=== PATIENT | male | born 1985 | race Hispanic/Latino ===

== ENCOUNTER 2017-11-08 16:07 | Outpatient (CLI) | payer BC | END 2017-11-08 16:08 | disposition home or self-care (01) | LOC: BICULT 16:07 | PROVIDERS: ATTEND Family Medicine | DX: N50.89 Other specified disorders of the male genital organs (principal); N43.3 Hydrocele, unspecified | CPT/HCPCS: 76870; 93976 ==

== ENCOUNTER 2018-01-02 17:11 | Outpatient (CLI) | payer BC ==
[2018-01-04 13:32] LABS: Hemoglobin 16.1 g/dL (14.0-18.0); Mean Corpuscular HGB CONC 33.7 g/dL (32.0-36.0); Mean Corpuscular Hemoglobin 31.9 pg (27.0-31.0); Mean Corpuscular Volume 94.7 fl (80.0-94.0); Mean Platelet Volume 7.7 fL (7.4-10.4); Platelet Count 247 thou/uL (130-400); RBC Distribution Width 11.5 % (11.5-14.5); Red Blood Cell (RBC) Count 5.04 mill/uL (4.70-6.10)
[2018-01-04 13:39] LABS: Anion Gap 12 mmol/L (10-20); BUN (Urea Nitrogen) 12 mg/dL (8.9-20.6); Calc. Creatinine Clearance 0 mL/min (70-130); Calcium 9.8 mg/dL (7.8-10.44); Carbon Dioxide 29 mmol/L (22-29); Chloride 101 mmol/L (98-107); Estimated GFR-MDRD 58; Glucose 92 mg/dL (70-105); Potassium 4.4 mmol/L (3.5-5.1); Sodium 138 mmol/L (136-145)
== END 2018-01-02 17:12 | disposition home or self-care (01) ==
LOC: LABBT 17:11
PROVIDERS: ATTEND Urology
DX: Z01.812 Encounter for preprocedural laboratory examination (principal); N43.3 Hydrocele, unspecified
CPT/HCPCS: 80048; 85027

== ENCOUNTER 2018-01-08 12:02 | Day surgery (SDC) | payer BC ==
[2018-01-02 17:33] VITALS: BMI 31.6
[2018-01-08] MEDS ORDERED: CEFAZOLIN/Water 2 GM/20 ML SYRINGE ONE (12:56)
[2018-01-08] MEDS ORDERED: Lidocaine 1% (PF) 30 ML VIAL ONE (13:30)
[2018-01-08] MEDS ORDERED: Bacitracin Zinc Ointment 30 gm TUBE ONE (13:30)
[2018-01-08] MEDS ORDERED: Bupivacaine/Epinephrine 0.25% 30 ML VIAL ONE (13:30)
[2018-01-08] MEDS ORDERED: Fentanyl 100 MCG/2 ML VIAL ONE ×2 (13:48→15:04)
[2018-01-08] MEDS ORDERED: Bupivacaine 0.25% HCL 30 ML VIAL ONE (13:52)
[2018-01-08] MEDS ORDERED: Ondansetron HCl/PF 4 MG/2 ML Vial ONE (16:26)
[2018-01-08] MEDS ORDERED: PROPOFOL 200 MG/20 ML VIAL ONE (16:26)
[2018-01-08] MEDS ORDERED: Ketorolac Tromethamine 30 MG/ML VIAL ONE (16:26)
[2018-01-08] MEDS ORDERED: Dexamethasone 20 MG/5 ML VIAL ONE (16:26)
[2018-01-08] MEDS ORDERED: HYDROcodone/Acetaminophen 5/325 mg Tablet ONE (16:40)
--- NOTE | 2018-01-08 18:47 | OP ---
DATE OF SERVICE: 01/08/2018 PREOPERATIVE DIAGNOSIS: Left hydrocele. POSTOPERATIVE DIAGNOSIS: Left hydrocele. PROCEDURE: Left hydrocelectomy. SURGEON: Dr. Gertrudis Cheng. ANESTHESIA: General with laryngeal mask airway, local anesthetic with lidocaine and Marcaine. SPECIMENS: None. COMPLICATIONS: None. BLOOD LOSS: Minimal. DRAINS: Remaining with a Freddy in the scrotum. INDICATIONS: The patient is a 32-year-old male, who had a bothersome left hydrocele with a normal ul trasound. He opted for intervention. The patient was brought into the room by Anesthesia, lying tab le in supine position and prepped and draped in sterile fashion. An incision was made in the left he miscrotum and taken down to the tunica vaginalis then a blunt dissection occurred to free it from the scrotal wall and release it from the sac itself. This was taken down to its neck at the cord attach ments. Then, two snaps were placed and a sharp incision was made to open the area and drained the fl uid approximately 100 mL of clear yellow fluid was noted. Then, the incision was lengthened with the Bovie and the excess tunica was inverted in bottleneck fashion, but only after inspecting the testic le and removing a testicular appendage with cautery and a small stone using a 0 Vicryl, and the skin edges were reapproximated distally and then anteriorly until the point where it was leaving enough ro om for the cord and the rest of the suture was carried up along the cut edge of the tunica for hemost asis. In similar fashion, the remaining edge on the side was sutured for hemostasis meeting back up with where the inverted tunica had been reapproximated. Then, the testicle was returned to the scrot um and hemostasis was ensured on the anterior scrotal wall with electrocautery. Then, it was irrigat ed and the incision was then made in the most dependent part with the cutting portion of the cautery and a Freddy drain was placed and sewn into place with a nylon suture. Then, the dartos was reappro ximated using 3-0 Vicryl and the skin edges were reapproximated in a running fashion using both simpl e and horizontal mattress style sutures with 3-0 chromic. Bacitracin and sterile fluffs and a scrota l support were then applied. The patient tolerated the procedure well and was then awakened and pedersen sferred back in stable condition.
== END 2018-01-08 16:10 | disposition home or self-care (01) ==
LOC: SDC 12:02
PROVIDERS: ATTEND Urology
PROC: 0VB70ZZ Excision of Left Tunica Vaginalis, Open Approach (ICD-10-PCS; principal; 2018-01-08)
DX: N43.3 Hydrocele, unspecified (principal); I10 Essential (primary) hypertension; F17.210 Nicotine dependence, cigarettes, uncomplicated; F12.90 Cannabis use, unspecified, uncomplicated
CPT/HCPCS: 96374; J1100; J1885; J2001; J2405; J2704; J3010; S0020

== ENCOUNTER 2019-07-12 17:16 | Emergency (ER) | payer BC ==
[2019-07-12] MEDS ORDERED: Lidocaine 1% PF 5 ML VIAL ONE (17:32)
[2019-07-12] MEDS ORDERED: Adacel (T-DAP) 0.5 ML SYRINGE ONE (17:38)
[2019-07-12] MEDS ORDERED: Triple Antibiotic Oint 1 GM Packet ONE (17:55)
== END 2019-07-12 18:00 | disposition home or self-care (01) ==
LOC: ERS 17:16
DX: S61.212A Laceration without foreign body of right middle finger without damage to nail, initial encounter (principal); F17.210 Nicotine dependence, cigarettes, uncomplicated; W45.8XXA Other foreign body or object entering through skin, initial encounter
CPT/HCPCS: 12002; 90471; 90715; J2001

== ENCOUNTER 2019-07-22 15:56 | Emergency (ER) | payer BC | END 2019-07-22 16:26 | disposition home or self-care (01) | LOC: ERS 15:56 | DX: S61.212D Laceration without foreign body of right middle finger without damage to nail, subsequent encounter (principal); I10 Essential (primary) hypertension; F41.9 Anxiety disorder, unspecified; F32.9 Major depressive disorder, single episode, unspecified; F17.210 Nicotine dependence, cigarettes, uncomplicated; W45.8XXD Other foreign body or object entering through skin, subsequent encounter ==

== ENCOUNTER 2019-08-31 07:25 | Emergency (ER) | payer BC ==
[2019-08-31] MEDS ORDERED: Lidocaine 1% (PF) 30 ML VIAL ONE (07:56)
== END 2019-08-31 08:58 | disposition home or self-care (01) ==
LOC: ERS 07:25
DX: S61.211A Laceration without foreign body of left index finger without damage to nail, initial encounter (principal); F41.9 Anxiety disorder, unspecified; F32.9 Major depressive disorder, single episode, unspecified; I10 Essential (primary) hypertension; F17.210 Nicotine dependence, cigarettes, uncomplicated; W26.8XXA Contact with other sharp object(s), not elsewhere classified, initial encounter
CPT/HCPCS: 12001; J2001

== ENCOUNTER 2021-11-25 11:55 | Inpatient (IN) | payer BC ==
[2021-11-25] MEDS ORDERED: Ondansetron ODT 4 MG TAB PO PRN (15:58)
[2021-11-25] MEDS ORDERED: hydrALAZINE 20 MG/ML VIAL SLOW IVP PRN (15:58)
[2021-11-25] MEDS ORDERED: Acetaminophen 325 MG TAB PO PRN (16:00)
[2021-11-25] MEDS ORDERED: Electrolyte Replacement Protocol 1 EACH FS SCH (16:00)
[2021-11-25] MEDS ORDERED: Ondansetron PF 4 MG/2 ML Vial IVP PRN (16:00)
[2021-11-25] MEDS ORDERED: Ondansetron ODT 4 MG TAB SL PRN (16:00)
[2021-11-25 17:09] VITALS: BMI 29.8
[2021-11-25] MEDS: Acetaminophen 325 MG TAB PO PRN (20:26)
[2021-11-26 05:38] LABS: #Eosinphils 0.1 thou/uL (0.0-0.7); #Lymphocytes 1.4 thou/uL (1.20-3.40); #Monocytes 0.6 thou/uL (0.11-0.59); #Neutrophils 3.1 thou/uL (1.40-6.50); %Basophils 0.8 % (0.0-1.0); %Eosinophils 2.5 % (0.0-10.0); %Lymphocytes 26.6 % (21.0-51.0); %Monocytes 11.9 % (0.0-10.0); %Neutrophils 58.2 % (42.0-75.0); Hemoglobin 16.2 g/dL (14.0-18.0); Mean Corpuscular HGB CONC 32.6 g/dL (32.0-36.0); Mean Corpuscular Hemoglobin 33.2 pg (27.0-31.0); Mean Platelet Volume 6.7 fL (7.4-10.4); Platelet Count 258 thou/uL (130-400); Red Blood Cell (RBC) Count 4.86 mill/uL (4.70-6.10); White Blood Cell (WBC) Count 5.3 thou/uL (4.8-10.8)
[2021-11-26 05:56] LABS: Anion Gap 12 mmol/L (10-20); BUN (Urea Nitrogen) 8 mg/dL (8.9-20.6); Calc. Creatinine Clearance 122 mL/min (70-130); Calcium 9.1 mg/dL (7.8-10.44); Carbon Dioxide 25 mmol/L (22-29); Chloride 104 mmol/L (98-107); Glucose 96 mg/dL (70-105); Potassium 4.1 mmol/L (3.5-5.1); Sodium 137 mmol/L (136-145)
[2021-11-26] MEDS: Acetaminophen 325 MG TAB PO PRN ×3 (08:49→20:20)
[2021-11-26] MEDS ORDERED: buPROPion 75 MG TAB PO SCH (09:00)
[2021-11-26] MEDS ORDERED: FLU VACC QS2021-22(6MOS UP)/PF 60 MCG/0.5 ML SYRINGE IM ONE (09:00)
[2021-11-26] MEDS ORDERED: Lisinopril 10 MG TAB PO SCH (09:00)
[2021-11-26] MEDS ORDERED: Fentanyl 250 MCG/5 ML VIAL ONE (13:45)
[2021-11-26] MEDS ORDERED: Midazolam HCl 2 mg/2 ml Vial ONE (13:45)
[2021-11-26] MEDS ORDERED: Fentanyl 100 MCG/2 ML VIAL SLOW IVP SCH (17:15)
[2021-11-26] MEDS: Morphine 4 MG/ML VIAL SLOW IVP PRN ×2 (17:37→21:30)
[2021-11-26] MEDS: Ketorolac Tromethamine 30 MG/ML VIAL IVP PRN (18:16)
[2021-11-26] MEDS: Bupropion 150 MG XL TAB PO SCH (20:20)
[2021-11-27] MEDS: Ketorolac Tromethamine 30 MG/ML VIAL IVP PRN ×3 (03:24→16:07)
[2021-11-27 05:58] LABS: #Eosinphils 0.2 thou/uL (0.0-0.7); #Lymphocytes 1.4 thou/uL (1.20-3.40); #Monocytes 0.7 thou/uL (0.11-0.59); #Neutrophils 3.7 thou/uL (1.40-6.50); %Basophils 0.5 % (0.0-1.0); %Eosinophils 2.8 % (0.0-10.0); %Lymphocytes 23.1 % (21.0-51.0); %Monocytes 10.9 % (0.0-10.0); %Neutrophils 62.6 % (42.0-75.0); Hemoglobin 15.5 g/dL (14.0-18.0); Mean Corpuscular HGB CONC 33.1 g/dL (32.0-36.0); Mean Corpuscular Hemoglobin 33.9 pg (27.0-31.0); Mean Platelet Volume 6.9 fL (7.4-10.4); Platelet Count 242 thou/uL (130-400); Red Blood Cell (RBC) Count 4.57 mill/uL (4.70-6.10)
[2021-11-27 06:14] LABS: Anion Gap 13 mmol/L (10-20); BUN (Urea Nitrogen) 12 mg/dL (8.9-20.6); Calc. Creatinine Clearance 109 mL/min (70-130); Carbon Dioxide 25 mmol/L (22-29); Chloride 105 mmol/L (98-107); Glucose 109 mg/dL (70-105); Potassium 4.2 mmol/L (3.5-5.1); Sodium 139 mmol/L (136-145)
[2021-11-27] MEDS ORDERED: Lisinopril 20 MG TAB PO SCH (09:00)
[2021-11-27] MEDS: Bupropion 150 MG XL TAB PO SCH (09:09)
[2021-11-27] MEDS: Acetaminophen 325 MG TAB PO PRN ×2 (09:15→16:06)
[2021-11-27 15:40] VITALS: BP 137/83; TEMP 98.1
== END 2021-11-27 18:32 | disposition home or self-care (01) | DRG 201 ==
LOC: ERS 11:55 → SURG B 13:54
PROVIDERS: ADMIT Thoracic Surgery (Cardiothoracic Vascular Surgery); ATTEND Thoracic Surgery (Cardiothoracic Vascular Surgery)
PROC: 0W9B30Z Drainage of Left Pleural Cavity with Drainage Device, Percutaneous Approach (ICD-10-PCS; principal; 2021-11-26)
PROC: 0W9B30Z Drainage of Left Pleural Cavity with Drainage Device, Percutaneous Approach (ICD-10-PCS; 2021-11-26)
DX: J93.83 Other pneumothorax (principal); I10 Essential (primary) hypertension; F41.9 Anxiety disorder, unspecified; F32.A Depression, unspecified; F17.210 Nicotine dependence, cigarettes, uncomplicated; Z20.822 Contact with and (suspected) exposure to COVID-19; Z79.899 Other long term (current) drug therapy
CPT/HCPCS: 36415; 71045; 71046; 80048; 82565; 85025; J1885; J2250; J2270; J3010; Q0162